=== PATIENT | male | born 1990 | race Caucasian/White ===

== ENCOUNTER 2017-10-11 12:52 | Emergency (ER) | payer SELFPAY ==
[2017-10-11 13:06] VITALS: BP 162/102
--- NOTE | 2017-10-11 13:14 | UC ---
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 has tried to flush it out - History of Current Complaint Chief Complaint: UCEye Stated Complaint: FB IN EYE Time Seen by Provider: 10/11/17 13:08 Onset/Duration: Sudden Onset, Lasting Days Timing: Constant Severity Initially: Mild Severity Currently: Moderate Pain Intensity: 4 Pain Scale Used: 0-10 Numeric Location of Injury: Conjunctiva Character: Foreign Body Sensation Aggravating Factor(s): Nothing Alleviating Factor(s): Nothing Associated Signs And Symptoms: Positive: Drainage (Clear) Eyes: 1 - FB - Risk Factors Penetrating Injury Risk Factor: Negative Globe Rupture Risk Factors: Negative Acute Glaucoma Risk Factors: Negative Optic Artery Occlusion Risk Factors: Negative - Allergies/Home Medications Allergies/Adverse Reactions: Allergies Allergy/AdvReac Type Severity Reaction Status Date / Time No Known Allergies Allergy Verified 10/11/17 13:07 PMH/Surg Hx/FS Hx/Imm Hx Previously Healthy: Yes - Surgical History Surgical History: Yes Surgery Procedure, Year, and Place: right foot fx repaired with screws - Family History Known Family History: Positive: Hypertension - Social History Alcohol Use: Daily Alcohol Amount: few beers Substance Use Type: Marijuana Substance Use Comment - Amount & Last Used: occasinal Smoking Status (MU): Heavy Every Day Tobacco Smoker Amount Used/How Often: 15 sig a day - Immunization History Most Recent Influenza Vaccination: none Most Recent Tetanus Shot: 2011 Review of Systems Constitutional: Negative Skin: Negative Eyes: Drainage - tearing right, Other - FB sensation right ENT: Negative Respiratory: Negative Cardiovascular: Negative Gastrointestinal: Negative Genitourinary: Negative Motor: Negative Neurovascular: Negative Musculoskeletal: Negative Neurological: Negative Psychological: Negative Is Patient Immunocompromised?: No All Other Systems Reviewed And Are Negative: Yes Physical Exam Triage Information Reviewed: Yes Appearance: Well-Appearing, No Pain Distress, Well-Nourished Vital Signs: Initial Vital Signs Temp 97.6 F 10/11/17 12:58 Pulse 87 10/11/17 12:58 Resp 16 10/11/17 12:58 BP 162/102 10/11/17 12:58 Pulse Ox 100 10/11/17 12:58 Vital Signs Reviewed: Yes Eyes: Positive: Conjunctiva Clear ENT: Positive: Hearing grossly normal. Negative: Nasal congestion, Nasal drainage, Trismus, Hoarse voice Neck: Positive: Supple, Nontender, No Lymphadenopathy Respiratory: Positive: Lungs clear, Normal breath sounds, No respiratory distress, No accessory muscle use Cardiovascular: Positive: RRR, No Murmur Musculoskeletal: Positive: ROM Intact, No Edema Neurological: Positive: Alert Psychological Exam: Normal Skin Exam: Normal Procedures - Eye Procedure Alcaine Drops Administered: Yes - 2 drops tetracaine right eye by me Eye FB Removal: removal w/ cotton swab Eye Complaint Course/Dx - Differential Dx/Diagnosis Provider Diagnoses: foreign body right eye (removed) Discharge - Discharge Plan Condition: Stable Disposition: HOME Prescriptions: Polymyx/Trimethoprim OPTH* [Polytrim OPHTH*] 1 - 2 drop RIGHT EYE QID #1 btl Patient Education Materials: Eye Foreign Body (ED) Referrals: Chapincito Leyva MD [Medical Doctor] - 2 Days (if not completely back to normal) Horacio Garcia MD [Primary Care Provider] - If Needed (for bp recheck)
[2017-10-11] MEDS ORDERED: Tetracaine 0.5% OPTH.SOL 4 ML* 1 DROP BTL RIGHT EYE ONE (13:15)
== END 2017-10-11 13:32 | disposition home or self-care (01) ==
LOC: UCEAST 12:52
DX: T15.11XA Foreign body in conjunctival sac, right eye, initial encounter (principal); X58.XXXA Exposure to other specified factors, initial encounter; Y93.89 Activity, other specified; Y92.9 Unspecified place or not applicable; Z11.4 Encounter for screening for human immunodeficiency virus [HIV]; F12.90 Cannabis use, unspecified, uncomplicated; F17.210 Nicotine dependence, cigarettes, uncomplicated
CPT/HCPCS: 36415; 65205; 86703; 99202; A9270-GY; G0463

== ENCOUNTER → 2018-04-08 12:50 | Emergency (ER) | payer BC, OTHER ==
--- NOTE | 2018-04-08 14:16 | ED ---
Allergic Reaction/Systemic - HPI Summary HPI Summary: Patient is a 27-year-old otherwise healthy male presenting to the ED with 3 days of diffuse blanchable erythematous nonpruritic and nonpainful rash to the bilateral forearms and bilateral lower legs sparing the rest body surface area. He also endorses throat pain 3 days. He recently moved into a new area, but denies any previous allergies. Patient is in no acute distress. Denies any shortness of breath or chest pain. Symptoms are aggravated with nothing alleviated with nothing. He has tried Benadryl at bedtime last evening without relief of symptoms. He endorses a tick bite to the left posterior lower leg without EM rash or other joint aches, headache or other symptoms. - History of Current Complaint Chief Complaint: EDGeneral Time Seen by Provider: 04/08/18 13:02 Hx Obtained From: Patient Onset/Duration: Gradual Onset Timing: Constant Severity Initially: Moderate Severity Currently: Moderate Pain Intensity: 0 Pain Scale Used: 0-10 Numeric Location: Discrete @ - Bilateral forearms and lower extremities Aggravating Factor(s): Nothing Alleviating Factor(s): Nothing Associated Signs And Symptoms: Positive: Negative - Related Hx Possible Reaction To: Insect - Allergies/Home Medications Allergies/Adverse Reactions: Allergies Allergy/AdvReac Type Severity Reaction Status Date / Time No Known Allergies Allergy Verified 04/08/18 13:00 PMH/Surg Hx/FS Hx/Imm Hx Previously Healthy: Yes Endocrine/Hematology History: Denies: Hx Diabetes, Hx Thyroid Disease Cardiovascular History: Denies: Hx Hypertension Respiratory History: Denies: Hx Asthma, Hx Chronic Obstructive Pulmonary Disease (COPD) GI History: Denies: Hx Ulcer - Surgical History Surgery Procedure, Year, and Place: right foot fx repaired with screws - Immunization History Hx Pertussis Vaccination: No Immunizations Up to Date: Yes Infectious Disease History: No Infectious Disease History: Denies: Hx Clostridium Difficile, Hx Hepatitis, Hx Human Immunodeficiency Virus (HIV), Traveled Outside the [place] in Last 30 Days - Family History Known Family History: Positive: Hypertension - Social History Occupation: Employed Full-time Lives: With Family Alcohol Use: None Alcohol Amount: few beers Hx Substance Use: Yes Substance Use Type: Reports: Marijuana Substance Use Comment - Amount & Last Used: occasinal Hx Tobacco Use: Yes Smoking Status (MU): Heavy Every Day Tobacco Smoker Amount Used/How Often: 15 sig a day Review of Systems Constitutional: Negative Negative: Fever, Chills, Fatigue, Skin Diaphoresis Positive: Sore Throat Negative: Palpitations, Chest Pain Negative: Shortness Of Breath, Cough Negative: Abdominal Pain, Vomiting Genitourinary: Negative Positive: no symptoms reported, see HPI Negative: Arthralgia, Myalgia Positive: Rash Neurological: Negative All Other Systems Reviewed And Are Negative: Yes Physical Exam Triage Information Reviewed: Yes Vital Signs On Initial Exam: Initial Vitals Temp Pulse Resp BP Pulse Ox 97.8 F 66 16 170/106 99 04/08/18 12:58 04/08/18 12:58 04/08/18 12:58 04/08/18 12:58 04/08/18 12:58 Vital Signs Reviewed: Yes Appearance: Positive: Well-Appearing, Well-Nourished Skin: Positive: Warm, Skin Color Reflects Adequate Perfusion, Other - Erythematous, nonpruritic, blanchable confluent small macules resembling allergic type reaction to the bilateral forearms and lower extremities Head/Face: Positive: Normal Head/Face Inspection Eyes: Positive: EOMI, MAYRA, Conjunctiva Clear ENT: Positive: Other - No tonsillar exudates or swelling, no pharyngeal erythema Neck: Positive: Supple, No Lymphadenopathy Respiratory/Lung Sounds: Positive: Clear to Auscultation, Breath Sounds Present Cardiovascular: Positive: Pulses are Symmetrical in both Upper and Lower Extremities Musculoskeletal: Positive: Normal, Strength/ROM Intact Neurological: Positive: Speech Normal Psychiatric: Positive: Normal, Affect/Mood Appropriate Diagnostics - Vital Signs Vital Signs Temp Pulse Resp BP Pulse Ox 04/08/18 12:58 97.8 F 66 16 170/106 99 - Laboratory Lab Results: Lab Results 04/08/18 Range/Units 13:13 Group A Strep Rapid Negative (Negative) Lab Statement: Any lab studies that have been ordered have been reviewed, and results considered in the medical decision making process. Allergic Reaction Course/Dx - Course Course Of Treatment: During the course of treatment, the patient is evaluated for allergic reaction rash. Unknown allergies. Has never been diagnosed with allergies in the past. Denies any shortness of breath, or chest or throat tightening. Strep swab negative. Rash is to the bilateral forearms and bilateral lower extremities, blanchable, confluent, macules, non-raised with no papules or pustules present representing an allergic type rash. Nonpruritic. Patient is offered steroids and hydroxyzine, but he declines at this time stating he will try to achieve results with [id number] medications. He will continue to take Benadryl also at bedtime. I've advised Cepacol tabs for any throat pain. He voices no concerns at this time and will follow-up with his PCP. He also states he will follow up with a food and beverage operations manager for any worsening or changing symptoms. He understands to return to the ED for any throat symptoms or any shortness of breath. - Diagnoses Differential Diagnosis/HQI/PQRI: Positive: Local Allergic Reaction Provider Diagnoses: Allergic reaction Discharge - Sign-Out/Discharge Documenting (check all that apply): Discharge/Admit/Transfer - Discharge Plan Condition: Stable Disposition: HOME Patient Education Materials: General Allergic Reaction (ED), Cold Compress or Soak (ED) Referrals: No Primary Care Phys,NOPCP [Primary Care Provider] - Additional Instructions: Over the counter claritin or Xyzol Benadryl at bedtime Cold compresses will help with discomfort Cepacol (over the counter) throat lozenges for discomfort - Billing Disposition and Condition Condition: STABLE Disposition: Home
[2018-04-08 14:36] VITALS: BP 173/109
== END | disposition home or self-care (01) ==
LOC: ED 12:50
DX: T78.40XA Allergy, unspecified, initial encounter (principal); F17.210 Nicotine dependence, cigarettes, uncomplicated
CPT/HCPCS: 87651; 99281